=== PATIENT | female | born 1985 | race American Indian/Alaskan Native ===

== ENCOUNTER 2017-06-09 07:52 | Observation (INO) | payer BC ==
[2017-06-08 14:15] VITALS: BMI 54.6
[2017-06-09 09:28] LABS: BASO % 0.5 % (0.0-2.0); EOS # 0.2 K/uL (0.0-0.7); EOS % 2.4 % (0.0-4.0); HEMATOCRIT 37.2 % (34.0-47.0); LYMPH # 1.7 K/uL (1.0-4.3); LYMPH % 24.4 % (20.0-40.0); MEAN CELL VOLUME 70.7 fl (81.0-99.0); MEAN CORPUSCULAR HEMOGLOBIN 22.8 pg (27.0-31.0); MEAN CORPUSCULAR HGB CONC 32.3 g/dL (33.0-37.0); MEAN PLATELET VOLUME 9.2 fl (7.2-11.7); MONO # 0.5 K/uL (0.0-0.8); MONO % 6.9 % (0.0-10.0); NEUT # 4.6 K/uL (1.8-7.0); NEUT % 65.8 % (50.0-75.0); NRBC % 0.1 % (0.0-0.0); RED CELL DISTRIBUTION WIDTH 18.3 % (11.5-14.5)
[2017-06-09 09:34] LABS: ALB/GLOB RATIO 1.1 (1.0-2.1); ALKALINE PHOSPHATASE 84 U/L (38-126); ALT/SGPT 26 U/L (9-52); AST/SGOT 19 U/L (14-36); BILIRUBIN,TOTAL 0.2 mg/dl (0.2-1.3); BLOOD UREA NITROGEN 13 mg/dl (7-17); CALCIUM 8.6 mg/dL (8.4-10.2); CARBON DIOXIDE 27 mmol/L (22-30); CHLORIDE 108 mmol/L (98-107); GFR AFRICAN-AMERICAN > 60; GLUCOSE,RANDOM 87 mg/dL (65-105); POTASSIUM 3.8 MMOL/L (3.6-5.0); SODIUM 143 mmol/l (132-148); TOTAL PROTEIN 7.6 G/DL (6.3-8.2)
[2017-06-09 09:50] LABS: PARTIAL THROMBOPLASTIN TIME 30.1 Seconds (25.6-37.1)
--- NOTE | 2017-06-09 12:00 | CP.SDSHP ---
Same Day Surgery H & P - History Proposed Procedure: Robotic hysterectomy and cystoscopy and necessary procedure Pre-Op Diagnosis: The patient is a 31-year-old 1 para 1 who has a history of symptomatic fibroid uterus menorrhagia history of blood transfusions , history of iron transfusions. Patient desires definitive treatment - Allergies Allergies: Allergies No Known Allergies Allergy (Verified 06/09/17 08:24) - Current Medications Current Medications: Iron - Physical Exam Vital Signs: Vital Signs 06/09/17 09:00 Temperature 98.2 F Pulse Rate 92 H Respiratory 18 Rate Blood Pressure 143/83 O2 Sat by Pulse 95 Oximetry - Impression Impression: 41-year-old with symptomatic fibroid uterus we discussed the different treatment modalities we discussed medical management and surgical management with myomectomy patient did not desire medical management or myomectomy patient desired hysterectomy. The patient was counseled regarding the risks of the surgery the benefits and the alternatives. The patient was informed that she would no longer be able to have children if she were to proceed with this procedure. Patient states did not desire any more children and wanted definitive treatment. Patient was counseled extensively and her and her partner agreed with the plan of care. Patient's wishes respected - Date & Time Date: 06/09/17 Time: 12:00 Short Stay Discharge - Short Stay Discharge Admitting Diagnosis/Reason for Visit: D25.9 Disposition: HOME/ ROUTINE Referrals: Mariely Cummings MD [Primary Care Provider] -
--- NOTE | 2017-06-09 12:02 | CARD ---
APPROVED REPORT EKG Measurement Heart [id number] ID [id number] <Conclusion> Normal sinus rhythm Normal ECG
[2017-06-09] MEDS ORDERED: Bupivacaine 0.5% Inj(30mL) ONE (12:06)
[2017-06-09] MEDS ORDERED: ceFAZolin IV 1 gm in Dextrose 2 GM/100 ML BAG IVPB ONE (12:07)
[2017-06-09] MEDS ORDERED: Propofol 10 mg/ml Inj (20 ML) ONE ×2 (12:16→12:33)
[2017-06-09] MEDS ORDERED: ePHEDrine 50 mg/ml Inj ONE (12:16)
[2017-06-09] MEDS ORDERED: Rocuronium 10 mg/ml (5 ml) ONE (12:17)
[2017-06-09] MEDS ORDERED: Succinylcholine 200 mg/10 ml Inj IV ONE (12:17)
[2017-06-09] MEDS ORDERED: Midazolam 2 MG/2 ML VIAL ONE (12:17)
[2017-06-09] MEDS ORDERED: Lactated Ringer's 1,000 ML IV ONE ×3 (12:20→16:41)
[2017-06-09] MEDS ORDERED: ceFAZolin IV 1 gm in Dextrose 1 GM/50 ML BAG IVPB ONE (12:46)
[2017-06-09] MEDS ORDERED: Dexamethasone 4 mg/1 ml ONE (13:42)
[2017-06-09] MEDS ORDERED: Desflurane Inhalation Anesthetic Liq (240 ml) ONE (14:06)
[2017-06-09] MEDS ORDERED: Naloxone 0.4 mg/ml Inj (Adult) IVP PRN (15:21)
[2017-06-09] MEDS ORDERED: Lactated Ringer's 1,000 ML IV SCH (15:30)
[2017-06-09] MEDS: HYDROmorphone 0.5 mg/0.5 ml ISec IVP PRN ×2 (16:14→16:24)
[2017-06-09] MEDS: cefOXitin IV 1 gm in Dextrose 1 GM/50 ML BAG IVPB SCH (18:13)
[2017-06-09] MEDS: Lactated Ringer's 1,000 ML IV SCH (18:13)
[2017-06-10] MEDS: cefOXitin IV 1 gm in Dextrose 1 GM/50 ML BAG IVPB SCH ×2 (00:46→10:04)
[2017-06-10] MEDS: Lactated Ringer's 1,000 ML IV SCH ×3 (00:51→15:18)
--- NOTE | 2017-06-10 05:32 | OP ---
PREOPERATIVE DIAGNOSES: Symptomatic fibroid uterus, pelvic pressure/pain, menorrhagia, history of blood transfusions, and history of iron transfusions. POSTOPERATIVE DIAGNOSES: Symptomatic fibroid uterus, pelvic pressure/pain, menorrhagia, history of blood transfusions, and history of iron transfusions. OPERATIONS PERFORMED: Robotic-assisted hysterectomy, cystoscopy, and lysis of bladder adhesions due to a previous delivery. SURGEON: Mariely Cummings MD COMPREHENSIVE ADVISOR: Gordo Ríos DO. Dr. Gordo Ríos was instrumental in the care of the patient. He helped to create exposure. He was helpful in obtaining hemostasis, extraction of the specimen, and closure of the patient. The procedure would not have been possible without his assistance. TYPE OF ANESTHESIA: General. ANESTHESIA ADMINISTERED BY: Denise Marrufo MD FINDINGS: A fibroid uterus, multiple myomas, uterus had irregular contour, but normal ovaries and tubes. On cystoscopy, we noted the dome of the bladder to be intact, and bilateral efflux of urine through the ureters. ESTIMATED BLOOD LOSS: 75 mL. URINE OUTPUT: Carson catheter put out approximately 400 mL of clear urine. The patient received approximately 1500 mL of D5-LR intraoperatively. DESCRIPTION OF PROCEDURE: After informed consent was obtained, we discussed the risks, benefits, and alternatives to the surgery. The patient was offered a myomectomy, patient declined. We discussed medical management, patient declined. The patient desired definitive treatment. After extensive counseling, patient opted for hysterectomy. The patient was taken to the operating room. She was given general anesthesia. She was prepped and draped in the normal sterile fashion. The patient was then adjusted, [facility], and prepped and draped in the normal sterile fashion. Speculum was inserted into the vagina. Cervix was then visualized and grasped with the single-tooth tenaculum. The cervix was then gently dilated. A VCare uterine manipulator was inserted into the uterine cavity as a means to manipulate the uterus. Attention was then turned to the urethra where a Carson catheter was inserted to monitor the patient's urinary output. Attention was then turned to the abdomen. Marcaine was infused at Parkinson's point and a 5-mm incision was made. The abdomen was then tented upward and the Veress needle was inserted into the abdominal cavity. Placement was then confirmed with a fluid-filled syringe. The abdomen was then insufflated to 15 mmHg. The Veress needle was then removed and a 5-mm trocar was inserted into the abdomen. The abdomen was then surveyed with findings noted above. Attention was then turned to approximately 20 cm right and lateral to the umbilicus, where Marcaine was infused. An 8-mm incision was made and an 8-mm robotic port was introduced into the abdominal cavity. Attention was then turned to approximately 10 cm right and lateral to the umbilicus where Marcaine was infused, an 8-mm incision was made, and an 8-mm robotic port was introduced into the abdominal cavity under direct visualization. Attention was then turned to the left side, approximately 15 cm right and lateral to the umbilicus. Marcaine was infused and an additional 8-mm robot was introduced into the abdominal cavity. The patient was then placed in steep Trendelenburg, the table was lowered, and the robot was brought on the patient's side without complication. The instruments used for the surgery were PK dissector, Tutu SutureCut, a scissor, and a ProGrasp. The instruments were inserted into the abdomen without difficulty. I then scrubbed and proceeded to the surgical console. Attention was then turned to the right round ligament. It was serially coagulated and transected with the scissor. Attention was then turned to the utero-ovarian ligament, which, in similar fashion, was serially coagulated and then transected with scissors. The bladder flap was then created, undermining the peritoneum with the PK dissector and cut with the scissors down to the level of the VCare cup anteriorly. The similar procedure was then performed posteriorly. The uterine arteries were then skeletonized, then serially coagulated at the level of the VCare cup. Attention was then turned to the left side, which in similar fashion, the round ligament was grasped, serially coagulated and transected with the scissors. Attention was then turned to the utero-ovarian ligament, which in similar fashion, was serially coagulated and transected with the scissors. The posterior aspect of the broad ligament was then undermined with PK dissector and cut with the scissors. The uterine arteries were then identified, skeletonized, serially coagulated to the level of the VCare cup and transected with the scissors. The VCare cup was then identified anteriorly, posteriorly, and laterally. Due to the large size of the uterus, an anterior myoma was enucleated using both sharp and blunt dissections. A similar procedure was performed posteriorly. Once the fibroids were enucleated, attention was then turned to the anterior portion of the cuff. There were noted some adhesions from her previous delivery that were gently dissected away using both sharp and blunt dissections. The VCare cup was then identified. The cervix and uterus were then amputated with the scissors in a circumferential fashion. The uterus, cervix, and tubes were then extracted vaginally. The myomas were also extracted vaginally. The vaginal cuff was closed with 2-0 on a barbed suture in a running fashion. The abdomen was then copiously irrigated. The irrigant was removed with a suction device. Hemostasis was noted. All instruments were then removed from the abdomen. Cystoscopy was then performed due to the patient's previous section and bladder adhesions. The cystoscope was inserted into the bladder. The dome of the bladder was noted to be intact. There was bilateral efflux of urine. Cystoscopy was then terminated. The abdominal incisions were approximated with 3-0 Biosyn and the skin was closed with Dermabond. All sponge, lap, needle, and instrument counts were correct x2 and the patient was taken to the recovery room in awake and stable condition. Mariely Cummings MD
[2017-06-10 06:51] LABS: MEAN CELL VOLUME 70.8 fl (81.0-99.0); MEAN CORPUSCULAR HEMOGLOBIN 22.7 pg (27.0-31.0); MEAN CORPUSCULAR HGB CONC 32.1 g/dL (33.0-37.0); WHITE BLOOD COUNT 10.8 K/uL (4.8-10.8)
[2017-06-10 09:03] VITALS: O2SAT 100
--- NOTE | 2017-06-10 13:11 | CP.SDSHP ---
Same Day Surgery H & P - Allergies Allergies: Allergies No Known Allergies Allergy (Verified 06/09/17 08:24) - Physical Exam Vital Signs: Vital Signs 06/10/17 09:03 Temperature 98 F Pulse Rate 85 Respiratory 20 Rate Blood Pressure 111/77 O2 Sat by Pulse 100 Oximetry Short Stay Discharge - Short Stay Discharge Admitting Diagnosis/Reason for Visit: D25.9 Referrals: Mariely Cummings MD [Primary Care Provider] - Instructions: Cystoscopy (DC), Robot Assisted Laparoscopic Hysterectomy (DC) Additional Instructions (Diet, Activity): follow up with MD for follow up appointment Progress Note/Discharge Note with Instructions: patient doing well f/u in one week no heavy lifting mortin percocet and colace rx provided nothing per vagina
[2017-06-10 14:49] VITALS: BP 120/75; PULSE 82; RESP 18; TEMP 98
== END 2017-06-10 16:00 | disposition home or self-care (01) ==
LOC: H.OPSURG 07:52 → H.ERHOLD 15:11 → H.MEDSURG1 18:11
PROVIDERS: ADMIT Obstetrics & Gynecology Gynecology; ATTEND Obstetrics & Gynecology Gynecology
DX: D25.9 Leiomyoma of uterus, unspecified (principal); N92.0 Excessive and frequent menstruation with regular cycle
CPT/HCPCS: 36415; 58570; 80053; 85025; 85027; 85610; 85730; 86850; 86900; 88305; 93005; G0378; J0330; J0690; J0694; J1100; J1170; J2001; J2250; J2405; J2704; J3010; J7120